=== PATIENT | female | born 1985 | race Caucasian/White ===

== ENCOUNTER 2018-05-26 18:45 | Emergency (ER) | payer OTHER ==
[2018-05-26 19:04] VITALS: BP 140/77
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
--- NOTE | 2018-05-26 19:41 | RAD ---
INDICATION: Left knee injury COMPARISON: None TECHNIQUE: AP, lateral, tunnel, and sunrise views were obtained. FINDINGS: The bony structures, joint spaces, and soft tissues are normal for age. IMPRESSION: NEGATIVE EXAMINATION.
== END 2018-05-26 20:00 | disposition home or self-care (01) ==
LOC: UCEAST 18:45
DX: M25.561 Pain in right knee (principal); F17.210 Nicotine dependence, cigarettes, uncomplicated
CPT/HCPCS: 99211; G0463